=== PATIENT | male | born 1995 | race Caucasian/White ===

== ENCOUNTER 2022-04-01 21:28 | Emergency (ER) | payer SELFPAY ==
[~2022-04-01] VITALS: Ht 157.5 cm; Wt 68.0 kg
[2022-04-01] MEDS ORDERED: KETOROLAC 30MG/ML VIAL IM ONE (23:30)
[2022-04-01 23:42] VITALS: BP 116/73
[2022-04-02] MEDS ORDERED: IBUP-2030 MT (00:35)
== END 2022-04-02 01:16 | disposition home or self-care (01) ==
LOC: ER 21:28
DX: R51.9 Headache, unspecified (principal); F10.129 Alcohol abuse with intoxication, unspecified; Y90.9 Presence of alcohol in blood, level not specified; V89.1XXA Person injured in unspecified nonmotor-vehicle accident, nontraffic, initial encounter; Y93.89 Activity, other specified; Y92.89 Other specified places as the place of occurrence of the external cause; Y99.8 Other external cause status
CPT/HCPCS: 72070; 72100; 73080; 73564; 96372; 99284; J1885

== ENCOUNTER 2023-10-12 06:46 | Emergency (ER) | payer OTHER ==
[~2023-10-12] VITALS: Ht 157.5 cm; Wt 68.0 kg
[~2023-10-12 06:46] MED LIST: IBUP-2030 MT
[2023-10-12 06:52] VITALS: O2SAT 100
[2023-10-12] MEDS ORDERED: IBUP-2030 MT (09:11)
[2023-10-12] MEDS ORDERED: IBUPROFEN 800MG TABLET PO ONE (09:15)
[2023-10-12] MEDS ORDERED: DEXAMETHASONE 4MG TABLET PO ONE (09:15)
[2023-10-12 09:48] VITALS: BP 135/70; PULSE 85; RESP 16; TEMP 98.3
== END 2023-10-12 09:54 | disposition home or self-care (01) ==
LOC: ER 06:46
DX: B34.9 Viral infection, unspecified (principal)
CPT/HCPCS: 99283; J8540